=== PATIENT | female | born 1980 | race Caucasian/White ===

== ENCOUNTER 2024-04-15 12:24 | Emergency (ER) | payer MEDICAID, OTHER, SELFPAY ==
[2024-04-15 12:43] VITALS: BP 116/60; PULSE 89; RESP 18; TEMP 36.6; O2SAT 98; BMI 24.2
[2024-04-15 13:26] LABS: COVID19 -Nasal RAPID Negative (Negative)
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
[2024-04-15 14:21] LABS: Alanine Aminotransferase 40 IU/L (<35); Albumin 3.6 g/dL (3.5-5.0); Albumin Globulin Ratio 1.2 (1.0-2.8); Alkaline Phosphatase 87 U/L (38-126); Aspartate Aminotransferase 66 IU/L (14-36); BUN Creatinine Ratio 23.9 (6-22); Bilirubin Total 0.4 mg/dL (0.2-1.3); Blood Urea Nitrogen 17 mg/dL (7-17); Calcium 8.4 mg/dL (8.4-10.2); Carbon Dioxide 22 mmol/L (22-32); Chloride 106 mmol/L (98-107); Estimated Glomerular Filt Rate > 60 mL/min (>60); Ethanol (ETOH) < 10 mg/dL; Glucose 97 mg/dL (70-100); HEMOLYSIS 41 (0-50); Potassium 4.2 mmol/L (3.4-5.1); Sodium 134 mmol/L (137-145); Total Protein 6.6 g/dL (6.3-8.2)
[2024-04-15 14:42] LABS: HCG Quantitative /Beta subunit < 2.39 mIU/mL
--- NOTE | 2024-04-15 14:57 | ED.PSYCH ---
HPI - Psych General Chief Complaint: Psychiatric Symptoms Stated Complaint: mental health Time Seen by Provider: 04/15/24 12:42 Source: patient Mode of arrival: Ambulatory History of Present Illness HPI Narrative: 44-year-old female has history of schizoaffective disorder, polysubstance abuse that includes heroin and methamphetamine and fentanyl, denies cocaine use, denies alcohol use, requests detox services, but also has been having both visual and auditory hallucinations, requesting voluntary placement medical psychiatric facility for stabilization. She denies current thoughts of hurting others, has vague thoughts of hurting herself, no specific plan. Last use of multiple drugs 2 days ago. She does not feel shaky, has no fevers, chills. Related Data Allergies Allergy/AdvReac Type Severity Reaction Status Date / Time NSAIDS (Non-Steroidal AdvReac Mild Rash Verified 04/15/24 12:52 Anti-Inflamma Iodinated Contrast Media AdvReac Difficulty Verified 04/15/24 12:52 Breathing Review of Systems Review of Systems Narrative: see HPI Patient History Social History Smoking Status: Current every day smoker Smoking Status: Current every day smoker tobacco type: cigarettes alcohol intake frequency: 0-2 drinks per day Substance Use Type: marijuana, opiates and methamphetamine Exam Narrative Exam Narrative: GENERAL: Well-developed patient, in mild distress. HEAD: Atraumatic. Normocephalic. EYES: Pupils equal round and reactive. Extraocular motions intact. No scleral icterus. No injection or drainage. ENT: Nose without bleeding, purulent drainage. Throat without erythema, tonsillar hypertrophy or exudate. Airway patent. NECK: Trachea midline. Non tender CARDIOVASCULAR: Regular rate and rhythm without murmurs, gallops, or rubs. RESPIRATORY: Clear to auscultation. Breath sounds equal bilaterally. No wheezes, rales, or rhonchi. GASTROINTESTINAL: Abdomen soft, non-tender, nondistended. EXTREMITIES: No edema or joint tenderness. No lacerations obvious to arms/legs. Scattered picking like skin lesions all extremities BACK: Nontender without deformity or crepitance. No flank tenderness. NEURO: AOx3. SKIN: No rash or erythema of visible areas Initial Vital Signs Initial Vital Signs: Vital Signs Temperature 97.8 F 04/15/24 12:43 Pulse Rate 89 04/15/24 12:43 Respiratory Rate 18 04/15/24 12:43 Blood Pressure 116/60 04/15/24 12:43 Pulse Oximetry 98 04/15/24 12:43 Oxygen Delivery Method Room Air 04/15/24 12:43 Course Orders Ordered: ED Orders 04/15/24 12:43 Comprehensive Metabolic Panel Stat Ethanol (ETOH) Stat EKG-12 Lead Stat 04/15/24 12:44 HCG Quantitative /Beta subunit Stat 04/15/24 12:50 Consult to SEO ASSISTANT - Shot Tube Machine Tender Stat 04/15/24 12:51 Consult to SEO ASSISTANT - Shot Tube Machine Tender Stat 04/15/24 12:57 COVID19 -Nasal RAPID Stat 04/15/24 14:30 Test Urine Stat Urinalysis and Microscopic Stat Urine Drug Screen, Rapid Stat Vital Signs Vital signs: Vital Signs - 8 hr 04/15/24 16:18 Temperature 98.0 F Pulse Rate 81 Respiratory Rate 12 Blood Pressure 99/60 Pulse Oximetry 99 Oxygen Delivery Method Room Air MDM - Psych Lab Data Attestation: I reviewed the patient's lab results. Lab results narrative: UDS positive for multiple substances 04/15/24 12:43 Labs: Lab Results 04/15/24 04/15/24 04/15/24 Range/Units 12:43 12:44 12:57 Sodium 134 L (137-145) mmol/L Potassium 4.2 (3.4-5.1) mmol/L Chloride 106 (98-107) mmol/L Carbon Dioxide 22 (22-32) mmol/L BUN 17 (7-17) mg/dL Creatinine 0.71 (0.52-1.04) mg/dL Estimated GFR > 60 (>60) mL/min BUN/Creatinine Ratio 23.9 H (6-22) Glucose 97 (70-100) mg/dL Calcium 8.4 (8.4-10.2) mg/dL Total Bilirubin 0.4 (0.2-1.3) mg/dL AST 66 H (14-36) IU/L ALT 40 H (<35) IU/L Alkaline Phosphatase 87 (38-126) U/L Total Protein 6.6 (6.3-8.2) g/dL Albumin 3.6 (3.5-5.0) g/dL Globulin 3.0 (1.7-4.1) g/dL Albumin/Globulin Ratio 1.2 (1.0-2.8) HCG, Quant < 2.39 mIU/mL Urine Color Urine Appearance Urine pH (4.5-8.0) Ur Specific [place] (1.000-1.035) Urine Protein (Negative) Urine Glucose (UA) (Negative) g/dL Urine Ketones (NEGATIVE) Urine Occult Blood (Negative) Urine Nitrate (Negative) Urine Bilirubin (NEGATIVE) Urine Urobilinogen (0.2) E.U./dL Ur Leukocyte Esterase (NEGATIVE) Urine RBC (0-5/HPF) Urine WBC (0-5/HPF) Ur Squamous Epith Cells (0-5/HPF) Urine Bacteria (None) Ur Culture Indicated? Vol Urine Centrifuged Urine Test (Negative) U Opiates 300ng/mL cut (Negative) Ur Oxycodone Screen (Negative) Urine Methadone Screen (Negative) Ur Barbiturates Screen (Negative) U Tricyclic Antidepress (Negative) Ur Phencyclidine Scrn (Negative) Ur Amphetamines Screen (Negative) U Methamphetamines Scrn (Negative) Ur MDMA Scrn (Ecstasy) (Negative) U Benzodiazepines Scrn (Negative) Urine Cocaine Screen (Negative) U Marijuana (THC) Screen (Negative) Urine Specific [place] (Normal) Ethyl Alcohol < 10 ( - 10) mg/dL Ur Creatinine (Normal) SARS-CoV-2 (PCR) Negative (Negative) 04/15/24 04/15/24 Range/Units 14:30 14:30 Sodium (137-145) mmol/L Potassium (3.4-5.1) mmol/L Chloride (98-107) mmol/L Carbon Dioxide (22-32) mmol/L BUN (7-17) mg/dL Creatinine (0.52-1.04) mg/dL Estimated GFR (>60) mL/min BUN/Creatinine Ratio (6-22) Glucose (70-100) mg/dL Calcium (8.4-10.2) mg/dL Total Bilirubin (0.2-1.3) mg/dL AST (14-36) IU/L ALT (<35) IU/L Alkaline Phosphatase (38-126) U/L Total Protein (6.3-8.2) g/dL Albumin (3.5-5.0) g/dL Globulin (1.7-4.1) g/dL Albumin/Globulin Ratio (1.0-2.8) HCG, Quant mIU/mL Urine Color Yellow Urine Appearance Clear Urine pH 6.5 Normal (4.5-8.0) Ur Specific [place] 1.015 (1.000-1.035) Urine Protein Negative (Negative) Urine Glucose (UA) Negative (Negative) g/dL Urine Ketones Trace H (NEGATIVE) Urine Occult Blood Negative (Negative) Urine Nitrate Negative (Negative) Urine Bilirubin Negative (NEGATIVE) Urine Urobilinogen 2.0 H (0.2) E.U./dL Ur Leukocyte Esterase Negative (NEGATIVE) Urine RBC None seen (0-5/HPF) Urine WBC 0-1/hpf (0-5/HPF) Ur Squamous Epith Cells 10-30 /hpf H (0-5/HPF) Urine Bacteria Many (>30) H (None) Ur Culture Indicated? Cult not indicated Vol Urine Centrifuged 10ml (spun) Urine Test Negative (Negative) U Opiates 300ng/mL cut Negative (Negative) Ur Oxycodone Screen Negative (Negative) Urine Methadone Screen Positive H (Negative) Ur Barbiturates Screen Negative (Negative) U Tricyclic Antidepress Negative (Negative) Ur Phencyclidine Scrn Negative (Negative) Ur Amphetamines Screen Positive H (Negative) U Methamphetamines Scrn Positive H (Negative) Ur MDMA Scrn (Ecstasy) Negative (Negative) U Benzodiazepines Scrn Negative (Negative) Urine Cocaine Screen Negative (Negative) U Marijuana (THC) Screen Positive H (Negative) Urine Specific [place] Normal (Normal) Ethyl Alcohol ( - 10) mg/dL Ur Creatinine Normal (Normal) SARS-CoV-2 (PCR) (Negative) MDM Narrative Medical decision making narrative: 44-year-old female with history of schizoaffective disorder, with hallucinosis visual and auditory, some suicidal thoughts without plan, polysubstance abuse including methamphetamine and fentanyl and heroin, requesting inpatient care for hallucinations, as well as detox services. No obvious trauma on exam. Afebrile, sirs screen negative. Patient had screening labs done, see results, unremarkable, accepts multiple attempts at drawing CBC unsuccessful, this was not done. Patient has been seen by mental health services, does not seem to have any acute medical condition, medically cleared for inpatient voluntary psychiatric placement. 1600, patient has been accepted for transfer to [facility], transportation anticipated 630-[address] Pugh accepting provider. Critical Care Time Critical Care Time Critical Care Time: Yes Total Critical Care Time: 35 Attestation: The high probability of a clinically significant, sudden or life threatening deterioration of the [psychosocial, cardiopulmonary, neurologic] system(s) required my full and direct attention, intervention and personal management. The aggregate critical care time was [35] minutes. This time is in addition to time spent performing reported procedures but includes the following: [x] Data Review and interpretation [x] Patient assessment and monitoring of vital signs [x] Documentation [x] Medication orders and management Discharge Plan Departure Patient Disposition: Xfer Psychiatric Hosp Clinical Impression: Hallucinosis, Schizoaffective disorder, Polysubstance abuse Referrals: Miscellaneous,Doctor, MD [Primary Care Provider] -
[2024-04-15 15:18] LABS: UR Morphine/Opiate cutoff 300 Negative (Negative); Ur Creatinine Normal (Normal); Ur Specific Gravity Normal (Normal); Urine Amphetamines Positive (Negative); Urine Cocaine Negative (Negative); Urine Methamphetamines Positive (Negative); Urine pH Normal (Normal)
[2024-04-15 15:19] LABS: Urine Barbiturates Negative (Negative); Urine Benzodiazepines Negative (Negative); Urine MDMA Negative (Negative); Urine Methadone Positive (Negative); Urine Oxycodone Negative (Negative); Urine Phencyclidine Negative (Negative); Urine Tricyclic Antidepressant Negative (Negative)
[2024-04-15 15:20] LABS: Urine Tetrahydrocannabinol Positive (Negative)
--- NOTE | 2024-04-15 15:27 | PC.NURSE ---
Multiple attempts by both lab and RN (using ultrasound) to obtain blood were unsuccessful; charge nurse Alma informed Dr. Zayas regarding this issue.
[2024-04-15 15:35] LABS: Appearance Urine UA CLEAR; Bilirubin Urine UA NEGATIVE (NEGATIVE); Color Urine UA YELLOW; Glucose Urine UA NEGATIVE (Negative); Ketones Urine UA TRACE (NEGATIVE); Leukocyte Esterase Urine UA NEGATIVE (NEGATIVE); Nitrite Urine UA NEGATIVE (Negative); Occult Blood Urine UA NEGATIVE (Negative); Protein Urine UA NEGATIVE (Negative); Specific Gravity Urine UA 1.015 (1.000-1.035)
[2024-04-15 15:37] LABS: pH Urine UA 6.5 (4.5-8.0)
[2024-04-15 15:39] LABS: Pregnancy Test Urine Negative (Negative)
[2024-04-15 15:43] LABS: Bacteria Urine Many (>30); RBC Urine None Seen (0-5/HPF); Urine Volume 10mL (spun); WBC Urine 0-1/HPF (0-5/HPF)
[2024-04-15 15:44] LABS: Culture Indicated Urine Cult Not Indicated; Squamous Epithelial Cell Urine 10-30 /HPF (0-5/HPF)
[2024-04-15 16:18] VITALS: BP 99/60; PULSE 81; RESP 12; TEMP 36.7; O2SAT 99
--- NOTE | 2024-04-15 17:02 | CM.SWNOTE ---
ED PLASTIC MACHINE OPERATOR Note PLASTIC MACHINE OPERATOR calls [facility]- no beds PLASTIC MACHINE OPERATOR calls [facility] - no voluntary beds PLASTIC MACHINE OPERATOR calls [facility], it is reported that they have beds and can review patient. PLASTIC MACHINE OPERATOR faxes clinicals for review. [facility] intake - [facility] calls and states that patient is accepted by accepting provider Dr. Gladis Pugh in [address]. It is reported that patient can go to facility any time after transport is set up. [facility] [place] and [place] [facility] [facility] for [phone] garbage pick up worker, [facility] [place] [facility] regarding patient's transport time. PLASTIC MACHINE OPERATOR informs patient of acceptance at [facility] and she indicates agreement and understanding. Plan: patient to transfer to [facility] [address] [facility] this evening. Destiney Vallecillo, PHOTOCOPYING EQUIPMENT REPAIRER
== END 2024-04-15 18:55 ==
PROVIDERS: Emergency Provider Emergency Medicine
DX: R44.0 Auditory hallucinations (principal); F25.9 Schizoaffective disorder, unspecified; F19.10 Other psychoactive substance abuse, uncomplicated; Z11.52 Encounter for screening for COVID-19
CPT/HCPCS: 80053; 80305; 80320; 81001; 81025; 84702; 87635; 99283; 99284